=== PATIENT | male | born 1945 | race Caucasian/White ===

== ENCOUNTER → 2019-03-10 | Day surgery (SDC) | payer MEDICARE, BC ==
[~2019-03-10] MED LIST: Lactated Ringers 1,000 ML IV SCH; Propofol 200 MG/20 ML SDV IV ONE
[2019-03-10 11:14] VITALS: BP 96/51
--- NOTE | 2019-03-13 08:31 | OR ---
DATE OF OPERATION: 03/10/2019 PREOPERATIVE DIAGNOSIS: FOLLOW UP POLYPS. POSTOPERATIVE DIAGNOSIS: FOLLOW UP POLYPS. SURGEON: Messi Martin MD PROCEDURE: SURVEILLANCE COLONOSCOPY WITH SNARE POLYPECTOMY X5, FORCEPS POLYP REMOVAL X2. ANESTHESIA: MAC via [employer]ICE. COMPLICATIONS: None. SPECIMEN: Seven small villous polyps, please see report. FINDINGS: 1. Full-length colonoscopy. 2. Mild sigmoid diverticulosis. 3. Seven small sessile polyps, all less than 0.5 cm. RECOMMENDATIONS: Followup colonoscopy in 3 years. INDICATIONS: The patient has prior history of multiple polyp removals in the past. We elected to have a surveillance colonoscopy given his history of polyp removal. DESCRIPTION OF PROCEDURE: The patient was prepped and draped, placed in the left lateral decubitus position. A lubricated Olympus colonoscope was inserted and easily advanced to the cecum. We were able to directly visualize the ileocecal valve and appendiceal orifice. The bowel prep was excellent. Upon withdrawal, the cecal pouch appeared benign. In the proximal ascending colon, the patient had a 3 or 4 mm villous lesion, sessile, removed with a snare, and suctioned into polyp trap #1. The second polyp was located at the hepatic flexure. There were 2 immediately in that area and both were removed at the same time and suctioned into polyp trap #2 without complication. The rest of the transverse colon was unremarkable. On the descending colon side of the splenic flexure, the patient had a 4th polyp also removed with snare and suctioned into polyp trap #4 without problem. In the sigmoid colon around 50 cm, the patient had another small sessile polyp about 4 mm, removed with a snare and suctioned into polyp trap #1 with a new trap. At 40 cm, the 6th polyp was removed also with a snare and suctioned into polyp trap. The patient did have diverticular disease throughout the sigmoid colon, mild in severity. No inflammatory changes. When we got near the rectosigmoid junction, the patient had 2 polyps, both were difficult to get out with a snare. We elected to remove them both with a forceps, first 1 was in the distal sigmoid, the next right in the rectosigmoid junction, without any complication. The rectal vault itself was benign. Retroflexion of the scope in the rectum showed no anal lesions. Air was suctioned, the scope removed without complication. ALBA/BOB /[id number]
== END ==
LOC: CC.SDS 09:20
PROVIDERS: ATTEND Family Medicine
DX: Z12.11 Encounter for screening for malignant neoplasm of colon (principal); D12.2 Benign neoplasm of ascending colon; D12.3 Benign neoplasm of transverse colon; D12.5 Benign neoplasm of sigmoid colon; K63.5 Polyp of colon; K57.30 Diverticulosis of large intestine without perforation or abscess without bleeding; I25.10 Atherosclerotic heart disease of native coronary artery without angina pectoris; I12.9 Hypertensive chronic kidney disease with stage 1 through stage 4 chronic kidney disease, or unspecified chronic kidney disease; N18.9 Chronic kidney disease, unspecified; E78.5 Hyperlipidemia, unspecified; J44.9 Chronic obstructive pulmonary disease, unspecified; C67.9 Malignant neoplasm of bladder, unspecified; F17.210 Nicotine dependence, cigarettes, uncomplicated; Z95.1 Presence of aortocoronary bypass graft; Z86.010 Personal history of colon polyps; Z79.82 Long term (current) use of aspirin; Z79.899 Other long term (current) drug therapy
CPT/HCPCS: 45385; J2704; J7120

== ENCOUNTER → 2022-02-13 | Day surgery (SDC) | payer MEDICARE, BC ==
[~2022-02-13] MED LIST changes: -Propofol 200 MG/20 ML SDV IV ONE; +Propofol 200 MG/20 ML SDV ONE; +fentaNYL 50 MCG/ML SDV ONE
[2022-02-13 12:41] VITALS: PULSE 62
[2022-02-13 12:44] VITALS: BP 125/70
== END ==
LOC: CC.SDS 08:45
PROVIDERS: ATTEND Family Medicine
DX: Z12.11 Encounter for screening for malignant neoplasm of colon (principal); K57.30 Diverticulosis of large intestine without perforation or abscess without bleeding; I25.10 Atherosclerotic heart disease of native coronary artery without angina pectoris; I12.9 Hypertensive chronic kidney disease with stage 1 through stage 4 chronic kidney disease, or unspecified chronic kidney disease; N18.9 Chronic kidney disease, unspecified; E78.5 Hyperlipidemia, unspecified; C67.9 Malignant neoplasm of bladder, unspecified; J44.9 Chronic obstructive pulmonary disease, unspecified; F17.200 Nicotine dependence, unspecified, uncomplicated; Z86.010 Personal history of colon polyps; E66.9 Obesity, unspecified; Z88.8 Allergy status to other drugs, medicaments and biological substances; Z79.899 Other long term (current) drug therapy; Z98.890 Other specified postprocedural states; Z68.30 Body mass index [BMI] 30.0-30.9, adult
CPT/HCPCS: J2704; J3010; J7120

== ENCOUNTER 2022-04-29 21:05 | Emergency (ER) | payer MEDICARE, BC ==
[2022-04-29] MEDS ORDERED: Sodium Chloride 0.9% 1,000 ML IV ONE (21:30)
[2022-04-29] MEDS ORDERED: Ondansetron 4 MG/2 ML SDV IVPUSH ONE (21:30)
[2022-04-29] MEDS ORDERED: Take Home: Ondansetron 4 MG Tab.DIS, 2 Tab Pack PO ONE (22:25)
[2022-05-26 17:15] LABS: CHLORIDE,CL 98 mEq/L (98-106); ESTIMATED GFR 34 mL/min (>=60); SODIUM,NA 135 mEq/L (136-145)
== END 2022-04-29 22:40 | disposition home or self-care (01) ==
LOC: CC.ED 21:05
DX: R53.1 Weakness (principal); R53.83 Other fatigue; E86.0 Dehydration; R11.0 Nausea; C67.9 Malignant neoplasm of bladder, unspecified
CPT/HCPCS: 36415; 80053; 85025; 96374; 99284-25; A9270-GY; J2405; J7030